=== PATIENT | female | born 1945 | race Hispanic/Latino ===

== ENCOUNTER → 2017-03-07 | Outpatient (CLI) | payer MEDICARE, OTHER ==
--- NOTE | 2017-03-07 11:46 | Diagnostic Imaging Report ---
PROCEDURE:X-RAY LEFT SHOULDER, COMPLETE COMPARISON:Chest radiograph 06/28/2016. INDICATIONS:LEFT SHOULDER PAIN FINDINGS: There are no fractures, dislocations, lytic or blastic lesions. Mild degenerative changes of the glenohumeral and acromioclavicular joints. The bones are well-mineralized. The soft-tissues are unremarkable. CONCLUSION: No acute osseous abnormalities. Dictated by: Jorge Mendoza M.D. on 03/07/2017 at 11:55 Electronically approved by: Jorge Mendoza M.D. on 03/07/2017 at 11:55
== END ==
LOC: RAD 11:20
PROVIDERS: ATTEND Family Medicine
DX: M25.512 Pain in left shoulder (principal)

== ENCOUNTER → 2017-03-22 | Outpatient (CLI) | payer OTHER ==
--- NOTE | 2017-03-22 12:25 | Diagnostic Imaging Report ---
SKULL series: Frontal and lateral projections COMPARISON: None HISTORY: MRI clearance FINDINGS: No fracture is seen. The paranasal sinuses are clear. Patient is status post right pterional craniotomy with aneurysm clip in the region of the right parasellar region. IMPRESSION: Prior right pterional craniotomy with aneurysm clip in the region of the right parasellar region. Signed by: Dr. Lia Chavez M.D. on 03/22/2017 12:22 PM
--- NOTE | 2017-03-22 14:47 | Diagnostic Imaging Report ---
TECHNIQUE: Magnetic resonance imaging of the LEFT SHOULDER was performed WITHOUT injected contrast. HISTORY: Injury COMPARISON: None available. FINDINGS: MUSCLES AND TENDONS: Rotator Cuff: Tendons: Supraspinatus and Infraspinatus: Intrasubstance degeneration, bursal and articular sided fraying without a discrete well-defined tear or tendon retraction. Teres Minor: Intact Subscapularis: Intact Muscles: No focal muscle atrophy. Biceps Tendon: The long head of the biceps tendon is intact and within the intertubercular groove. GLENOHUMERAL JOINT: Glenoid Labrum: Complex tearing of the superior, posterior superior and posterior labrum, with involvement of the biceps labral anchor. Articular Cartilage: Intermediate to high-grade erosion. Joint Fluid: Trace effusion. ACROMIOCLAVICULAR JOINT: Mild hypertrophic degenerative changes of the acromioclavicular joint with a trace effusion. BONE: The acromion is unremarkable. No focal or infiltrative bone marrow replacing abnormality. No acute fracture. SOFT TISSUES: Mild thickening and edema of the anterior aspect of the inferior glenohumeral ligament. IMPRESSION: 1. Sprain of the anterior aspect of the inferior glenohumeral ligament. 2. Mild to moderate degenerative changes of the glenohumeral joint, including degenerative tearing of the labrum as detailed above. 3. Mild supraspinatus and infraspinatus tendinosis. 4. Mild degenerative changes of the acromioclavicular joint. Signed by: Dr. Tato Scott D.O., M.M.M. on 03/22/2017 2:43 PM
== END ==
LOC: MRI 10:17
PROVIDERS: ATTEND Specialist
DX: S46.092A Other injury of muscle(s) and tendon(s) of the rotator cuff of left shoulder, initial encounter (principal)
CPT/HCPCS: 70250

== ENCOUNTER 2017-05-03 14:49 | Outpatient (RCR) | payer MEDICARE, OTHER ==
[2017-09-17] MEDS ORDERED: ALENDRONATE SOD70 MG PO (14:23)
[2017-09-17] MEDS ORDERED: METOPROLOL SUCC25 MG PO (14:24)
[2017-09-17] MEDS ORDERED: ULTRAM 50MG50 MG PO (14:24)
[2017-09-17] MEDS ORDERED: DIOVAN HCT 3201 EAC1 PO (14:25)
[2017-09-17] MEDS ORDERED: GLIPIZIDE ER5 MG PO (14:25)
[2017-09-19] MEDS ORDERED: NAPROXEN250 MG PO (10:46)
== END 2017-05-05 ==
LOC: PT 14:49
PROVIDERS: ATTEND Specialist
DX: S43.402S Unspecified sprain of left shoulder joint, sequela (principal); M25.512 Pain in left shoulder; M25.612 Stiffness of left shoulder, not elsewhere classified; M62.81 Muscle weakness (generalized)
CPT/HCPCS: 97010 ×2; 97110 ×9; 97140; 97162; G8984; G8985

== ENCOUNTER 2017-06-01 10:50 | Outpatient (RCR) | payer OTHER, MEDICARE | END 2017-06-04 | LOC: PT 10:50 | PROVIDERS: ATTEND Specialist | DX: S43.402S Unspecified sprain of left shoulder joint, sequela (principal); M75.92 Shoulder lesion, unspecified, left shoulder; M25.512 Pain in left shoulder; M25.612 Stiffness of left shoulder, not elsewhere classified | CPT/HCPCS: 97139 ==

== ENCOUNTER 2017-09-11 10:03 | Emergency (ER) | payer MEDICARE, OTHER ==
[~2017-09-11] VITALS: Ht 142.2 cm; Wt 49.9 kg
[2017-09-11] MEDS ORDERED: KETOROLAC TROMETHAMINE 10 MG TAB PO ONE (10:15)
[2017-09-11] MEDS ORDERED: TRAMADOL HCL 50 MG TAB PO ONE (10:15)
--- NOTE | 2017-09-11 11:54 | Diagnostic Imaging Report ---
PROCEDURE:FEMUR 2 VIEWS MINIMUM LEFT COMPARISON:[facility], CT, CT ABDOMEN/PELVIS W, 06/28/2016, 17:02. INDICATIONS:FALL FINDINGS: Decreased mineralization, which limits evaluation of the bony structures. Partially visualized acute, displaced fracture of the patella with associated soft tissue swelling above the distal femur. No other acute, displaced fractures or dislocations. Mild degenerative changes in the left hip and sacroiliac joints. Soft tissues are otherwise unremarkable. CONCLUSION: Decreased mineralization, which limits evaluation of bony structures. No acute, displaced fracture or dislocation in the femur. Partially visualized acute, displaced fracture of the patella Abimael Cevallos M.D. Dictated by: Abimael Cevallos M.D. on 09/11/2017 at 11:59 Electronically approved by: Abimael Cevallos M.D. on 09/11/2017 at 11:59
--- NOTE | 2017-09-11 11:56 | Diagnostic Imaging Report ---
PROCEDURE:X-RAY LEFT KNEE, THREE OR MORE VIEWS COMPARISON:None. INDICATIONS:LEFT KNEE PAIN FROM FALL FINDINGS: Decreased mineralization, which limits evaluation of the bony structures. Acute, mildly comminuted, fracture of the patella, with approximately 1.4 cm superior distraction of the proximal fragment. Marked soft tissue swelling anterior to the patella. Moderate to large suprapatellar effusion. Rest of the bony structures shows no acute, displaced fracture or dislocation. Joint spaces are relatively well-preserved. CONCLUSION: Acute, mildly comminuted fracture of the patella with approximately 1.4 cm superior distraction of the proximal fragment. Associated marked soft tissue swelling anterior to the patella and a moderate to large suprapatellar effusion. Abimael Cevallos M.D. Dictated by: Abimael Cevallos M.D. on 09/11/2017 at 12:02 Electronically approved by: Abimael Cevallos M.D. on 09/11/2017 at 12:02
--- NOTE | 2017-09-11 11:58 | Diagnostic Imaging Report ---
PROCEDURE:X-RAY LEFT LOWER LEG COMPARISON:None. INDICATIONS:FALL FINDINGS: Decreased mineralization, which limits evaluation of the bony structures. No acute, displaced fracture or dislocations in the lower leg. Soft tissues are unremarkable. Joint spaces are preserved. CONCLUSION: No acute abnormalities in the lower leg. Please see dedicated knee film report for description of acute, displaced left patellar fracture and associated findings Abimael Cevallos M.D. Dictated by: Abimael Cevallos M.D. on 09/11/2017 at 12:04 Electronically approved by: Abimael Cevallos M.D. on 09/11/2017 at 12:04
== END 2017-09-11 13:18 | disposition home or self-care (01) ==
LOC: ER 10:10
DX: S82.042A Displaced comminuted fracture of left patella, initial encounter for closed fracture (principal); W01.0XXA Fall on same level from slipping, tripping and stumbling without subsequent striking against object, initial encounter; Y93.01 Activity, walking, marching and hiking; Y92.008 Other place in unspecified non-institutional (private) residence as the place of occurrence of the external cause
CPT/HCPCS: 99284

== ENCOUNTER → 2017-09-19 | Day surgery (SDC) | payer MEDICARE, OTHER ==
[2017-09-17 14:43] LABS: BASOPHILS # (AUTO) 0.1 (0.0-0.1); BASOPHILS % 0.6 % (0.0-1.0); EOSINOPHILS # (AUTO) 0.3 (0.0-0.4); EOSINOPHILS % 2.9 % (0.0-6.0); HEMATOCRIT 33.5 % (34.2-44.1); HEMOGLOBIN 11.4 g/dL (12.0-16.0); LYMPHOCYTES # (AUTO) 2.9 (1.0-3.2); LYMPHOCYTES % 32.3 % (18.0-39.1); MEAN CORPUSCULAR HEMOGLOBIN 31.2 pg (28-32); MEAN CORPUSCULAR VOLUME 91.8 fL (81-99); MONOCYTES # (AUTO) 0.5 (0.2-0.8); MONOCYTES % 6.1 % (4.4-11.3); NEUTROPHILS # (AUTO) 5.1 (2.1-6.9); NEUTROPHILS % 57.9 % (38.7-80.0); PLATELET COUNT 148 x10e3/uL (140-360); RED BLOOD COUNT 3.65 x10e6/uL (3.6-5.1); RED CELL DISTRIBUTION WIDTH 13.1 % (11.7-14.4)
[2017-09-17 14:56] LABS: ANION GAP 12.7 mmol/L (8-16); BLOOD UREA NITROGEN 13 mg/dL (7-26); BUN/CREATININE RATIO 20 (6-25); CARBON DIOXIDE 26 mmol/L (22-29); CHLORIDE 107 mmol/L (98-107); CREATININE, SERUM 0.64 mg/dL (0.57-1.11); EST GLOMERULAR FILTRATION RATE > 60 ML/MIN (60-); GLUCOSE 174 mg/dL (74-118); POTASSIUM 3.7 mmol/L (3.5-5.1); SODIUM 142 mmol/L (136-145)
--- NOTE | 2017-09-17 15:26 | Diagnostic Imaging Report ---
PROCEDURE: Frontal and lateral views of the chest. COMPARISON: 06/28/16 INDICATIONS: PRE-OP FOR LT PATELLA FRACTURE FINDINGS: Lines/tubes: None. Lungs: The lungs are well inflated and clear. There is no evidence of pneumonia or pulmonary edema. Pleura: There is no pleural effusion or pneumothorax. Heart and mediastinum: The heart and the mediastinum are normal. Bones: No acute bony abnormality. Degenerative changes of thoracic spine. IMPRESSION: 1. No acute cardiopulmonary disease. Dictated by: Jordan Larson M.D. on 09/17/2017 at 15:32 Electronically approved by: Jordan Larson M.D. on 09/17/2017 at 15:32
[~2017-09-19] MED LIST: ACETAMINOPHEN 1000 MG/100 ML 100 ML IV ONE; ACETAMINOPHEN 1000 MG/100 ML IV ONE; ALENDRONATE SOD70 MG PO; BACITRACIN 50,000 UNIT VIAL ONE; BUPIVACAINE HCL 0.5% INJ 30 ML VIAL INJ ONE; CEFAZOLIN SOD 1 GM VIAL ONE; DIOVAN HCT 3201 EAC1 PO; FENTANYL CITRATE/PF 100MCG/2 ML INJ ONE; GLIPIZIDE ER5 MG PO; HYDROMORPHONE 1MG/1ML INJ ONE; LIDOCAINE HCL 2% LOCAL INJ 5 ML SDV VIAL INJ ONE; METOPROLOL SUCC25 MG PO; MIDAZOLAM HCL 2 MG/2 ML VIAL ONE; NAPROXEN250 MG PO; ONDANSETRON HCL INJ 2 MG/ML VIAL ONE; PROPOFOL IV EMULSION 10 MG/ML 20 ML VIAL ONE; SEVOFLURANE INHAL SOLN 250 ML PEN BTL ONE; ULTRAM 50MG50 MG PO
--- NOTE | 2017-09-22 13:55 | Operative Report ---
DATE OF PROCEDURE: September 19, 2017 PREOPERATIVE DIAGNOSIS: Left displaced patella fracture. POSTOPERATIVE DIAGNOSIS: Left displaced patella fracture. OPERATION/PROCEDURE PERFORMED: The patient underwent an open reduction internal fixation of the left patella fracture with a tension band technique. 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 ANESTHESIA: General endotracheal intubation anesthesia. IV FLUIDS: Per the anesthesia record. BRIEF DESCRIPTION OF THE PATIENT'S OPERATIVE PROCEDURE: Ms. Marquez was taken to the operating room and placed in the supine position on the operating table. Following induction of general anesthesia, as well as endotracheal intubation, the patient's left lower extremity was examined under anesthesia. She was found to have bruising and ecchymosis involving the left knee joint. Fluoroscopic evaluation of the knee demonstrated a displaced patellar fracture. The patient's lower extremity was prepped and draped in the standard surgical fashion. The case was begun by creating an incision overlying the patella. The incision was carried through skin only. Blunt dissection was used to deepen the incision to the level of the extensor mechanism. The extensor mechanism was found to be disrupted at the midportion of the patella. There was a displaced patellar fracture. The fracture sites were cleaned and the knee was thoroughly irrigated. The fracture was then reduced and held in place with a tenaculum clamp. Two 0.062 K-wires were inserted from distal to proximal transfixing the fracture in its reduced position. The position of the K-wires was checked using fluoroscopy and found to be appropriate. An 18-gauge wire was then woven about the patella beneath the pins in a figure-of-8 fashion and tensioned appropriately. Fluoroscopic evaluation of the knee joint demonstrated a reduction of the patient's articular surface with minimal step-off and appropriate placement of the hardware. The knee was now placed through a range of motion, and the patella remained aligned with good compression. The 0.062 K-wires were cut and buried within the soft tissues. The wound was copiously irrigated. The extensor retinaculum was repaired with nonabsorbable suture. The wound was closed in a multilayer fashion. Sterile dressings were applied, as well as a knee immobilizer. The patient was then awakened and taken to the postanesthesia care unit in stable condition. Job#: [id number] RI
--- OUTSIDE RECORDS SUMMARY | 2017-11-08 01:59 | XMS REPORT | Continuity of Care Document ---
Author Author [facility] Organization [facility] Address [address] [place] [address] Phone Unavailable Care Team Providers Care Distributor Cleaner Name Role Phone MARJORIE MCCRAY PCP Insurance Providers Guarantor Rere Marquez Steven Address [address] [place] [address] Payer [facility] Policy Number [id number] Subscriber's Name Rere Marquez Relationship 18 Self / Same As Patient Group Name RETIRED Payer [facility] Policy Number [id number] Subscriber's Name Rere Marquez Relationship 18 Self / Same As Patient Group Name RETIRED Advance Directives Directive Response Recorded Date/Time Does the patient have an advance directive? No 08/11/15 9:46am If yes, is advance directive on file with [facility]? No 08/11/15 9:46am If not on file with [facility] will patient provide a copy? No 08/11/15 9:46am Problems No problem information available. Medications No medication information available. Social History Smoking Status Start Date Stop Date Current every day smoker Hospital Discharge Instructions No hospital discharge instruction information available. Plan of Care Discharge Date 09/11/17 1:18pm Disposition HOME, SELF-CARE Condition at Discharge Stable Instructions/Education Provided Fractures - Knee Forms Provided Work/School Excuse Prescriptions See Medication Section Referrals SRINIVAS ASHER MD Order Date: Call for an appointment Address[facility] [address] [place], [place] [id number] Additional Instructions/Education FOLLOW UP WITH ORTHOPEDIC DOCTOR Lidna ASHER ON WEDNESDAY 09/13. CALL FOR APPOINTMENT TAKE MEDICATION PRESCRIBED WEAR KNEE IMMOBILIZER, AND BEAR WEIGHT TOLERATED Functional Status No functional status information available. Allergies, Adverse Reactions, Alerts No known allergies. Immunizations No immunization information available. Vital Signs Acute Vital Signs Vital Response Date/Time Height 4 ft 8 in 09/11/2017 10:04am Weight 110 lb 09/11/2017 10:04am Body Mass Index 24.7 kg/m^2 09/11/2017 10:04am Results No relevant diagnostic test, laboratory data and/or discharge summary information available. Procedures Procedure Status Date Provider(s) MRI joint upr extrem w/o dye Active 03/22/17 SRINIVAS ASHER MD Encounters Encounter Location Arrival/Admit Date Discharge/Depart Date Attending Provider [facility] 09/11/17 10:10am 09/11 1:18pm JORDIN NUÑEZ MD Discharged [facility] 05/07/17 9:48am 06/04/17 11:59pm SRINIVAS ASHER MD Discharged [facility] 04/10/17 1:07pm 05/05/17 11:59pm SRINIVAS ASHER MD Registered Clinic [facility] 03/22/17 10:17am SRINIVAS ASHER MD Registered Clinic [facility] 03/07/17 11:20am MARJORIE MCCRAY
--- OUTSIDE RECORDS SUMMARY | 2017-11-08 01:59 | XMS REPORT ---
Author Author [facility] Address Unknown Phone Unavailable Care Team Providers Care Jewel Sawyer Name Role Phone SRINIVAS ASHER Unavailable Unavailable JORDIN NUÑEZ Unavailable Unavailable MARJORIE MCCRAY Unavailable Unavailable Problems This patient has no known problems. Allergies, Adverse Reactions, Alerts This patient has no known allergies or adverse reactions. Medications This patient has no known medications. Results Test Description Test Time Test Comments Text Results Atomic Results Result Comments CHEST 2 VIEWS 2017-09-17 15:32:00 [place] [address] Patient Name: PRESLEY HANNON MR #: [id number] : 1945 Age/Sex: 72/F Req #: [id number] Adm Physician: Ordered by: JAY JAY SOLO MD Report #: [id number] Location: OR Room/Bed: Procedure: [id number] DX/CHEST 2 VIEWS Exam Date: 09/17/17 Exam Time: 1500 REPORT STATUS: Signed PROCEDURE: Frontal and lateral views of the chest. COMPARISON: 06/28/16 INDICATIONS: PRE- OP FOR LT PATELLA FRACTURE FINDINGS: Lines/tubes: None. Lungs : The lungs are well inflated and clear. There is no evidence of pneumonia or pulmonary edema. Pleura: There is no pleural effusion or pneumothorax. Heart and mediastinum: The heart and the mediastinum are normal. Bones: No acute bony abnormality. Degenerative changes of thoracic spine. IMPRESSION: 1. No acute cardiopulmonary disease. Dictated by: Jordan Jensen M.D. on 09/17/2017 at 15:32 Electronically approved by: Jordan Jensen M.D. on 09/17/2017 at 15:32 Dictated By: JORDAN JENSEN MD 153 Transcribed By: NOBLE on 09/17/17 1532 COPY TO: JAY JAY SOLO MD LOWER LEG LEFT 2017-09-11 12:04:00 [place] [address] Patient Name: PRESLEY HANNON MR #: [id number] : 1945 Age/Sex: 72/F Req #: [id number] Adm Physician: Ordered by: JORDIN NUÑEZ MD Report #: [id number] Location: ER Room/Bed: Procedure: [id number] DX/LOWER LEG LEFT Exam Date: 09/11/17 Exam Time: 1110 REPORT STATUS: Signed PROCEDURE: X-RAY LEFT LOWER LEG COMPARISON: None. INDICATIONS: FALL FINDINGS: Decreased mineralization, which limits evaluation of the bony structures. No acute, displaced fracture or dislocations in the lower leg. Soft tissues are unremarkable. Joint spaces are preserved. CONCLUSION : No acute abnormalities in the lower leg. Please see dedicated knee film report for description of acute, displaced left patellar fracture and associated findings Abimael Cevallos M.D. Dictated by: Abimael Cevallos M.D. on 09/11/2017 at 12:04 Electronically approved by: Abimael Cevallos M.D. on 09/11/2017 at 12:04 Dictated By: ABIMAEL CEVALLOS MD 1204 Transcribed By: NOBLE on 09/11/17 1204 COPY TO: JORDIN NUÑEZ MD KNEE LEFT THREE VIEWS 2017-09-11 12:02:00 [place] [address] Patient Name: PRESLEY HANNON MR #: [id number] : 1945 Age/Sex: 72/F Req #: [id number] Adm Physician: Ordered by: JORDIN NUÑEZ MD Report #: [id number] Location: ER Room/Bed: __ Procedure: [id number] DX/KNEE LEFT THREE VIEWS Exam Date: 09/11/17 Exam Time: 1110 REPORT STATUS: Signed PROCEDURE: X-RAY LEFT KNEE, THREE OR MORE VIEWS COMPARISON: None. INDICATIONS: LEFT KNEE PAIN FROM FALL FINDINGS: Decreased mineralization, which limits evaluation of the bony structures. Acute, mildly comminuted, fracture of the patella, with approximately 1.4 cm superior distraction of the proximal fragment. Marked soft tissue swelling anterior to the patella. Moderate to large suprapatellar effusion. Rest of the bony structures shows no acute, displaced fracture or dislocation. Joint spaces are relatively well-preserved. CONCLUSION: Acute, mildly comminuted fracture of the patella with approximately 1.4 cm superior distraction of the proximal fragment. Associated marked soft tissue swelling anterior to the patella and a moderate to large suprapatellar effusion. Abimael Cevlalos M.D. Dictated by: Abimael Cevallos M.D. on 2017 at 12:02 Electronically approved by: Abimael Cevallos M.D. on 08/2017 at 12:02 Dictated By: ABIMAEL CEVALLOS MD 01 Transcribed By: NOBLE on 09/11/171201 COPY TO: JORDIN NUÑEZ MD FEMUR 2 VIEWS MINIMUM LEFT 2017-09-11 11:59:00 [place] [address] Patient Name: PRESLEY HANNON MR #: [id number] : 1945 Age/Sex: 72/F Req #: [id number] Adm Physician: Ordered by: JORDIN NUÑEZ MD Report #: [id number] Location: ER Room/Bed: Procedure: [id number] DX/FEMUR 2 VIEWS MINIMUM LEFT Exam Date: Exam Time: REPORT STATUS: Signed PROCEDURE : FEMUR 2 VIEWS MINIMUM LEFT COMPARISON: [facility], CT, CT ABDOMEN/PELVIS W, 06/28/2016, 17:02. INDICATIONS: FALL FINDINGS: Decreased mineralization, which limits evaluation of the bony structures. Partially visualized acute, displaced fracture of the patella with associated soft tissue swelling above the distal femur. No other acute , displaced fractures or dislocations. Mild degenerative changes in the left hip and sacroiliac joints. Soft tissues are otherwise unremarkable. CONCLUSION: Decreased mineralization, which limits evaluation of bony structures. No acute, displaced fracture or dislocation in the femur. Partially visualized acute, displaced fracture of the patella Abimael Cevallos M.D. Dictated by: Abimael Cevallos M.D. on 09/11/2017 at 11:59 Electronically approved by: Abimael Cevallos M.D. on 09/11/2017 at 11 :59 Dictated By: ABIMAEL CEVALLOS MD 115 Transcribed By: NOBLE on 09/11/17 1159 COPY TO: JORDIN NUÑEZ MD MRI SHOULDER LEFT WO [facility] [address] [place] [address] Patient Name: PRESLEY HANNON MR #: [id number] : 1945 Age/Sex: 71/F Req #: [id number] Adm Physician: Ordered by: SRINIVAS ASHER MD Report #: [id number] Location: MRI Room/Bed: Procedure: [id number] MRI/MRI SHOULDER LEFT WO Exam Date: Exam Time : REPORT STATUS: Signed TECHNIQUE: Magnetic resonance imaging of the LEFT SHOULDER was performed WITHOUT injected contrast. HISTORY: Injury COMPARISON: None available. FINDINGS: MUSCLES AND TENDONS: Rotator Cuff: Tendons: Supraspinatus and Infraspinatus: Intrasubstance degeneration, bursal and articular sided fraying without a discrete well- defined tear or tendon retraction. Teres Minor: Intact Subscapularis: Intact Muscles: No focal muscle atrophy. Biceps Tendon: The long head of the biceps tendon is intact and within the intertubercular groove. GLENOHUMERAL JOINT: Glenoid Labrum: Complex tearing of the superior, posterior superior and posterior labrum, with involvement of the biceps labral anchor. Articular Cartilage: Intermediate to high-grade erosion. Joint Fluid: Trace effusion. ACROMIOCLAVICULAR JOINT: Mild hypertrophic degenerative changes of the acromioclavicular joint with a trace effusion. BONE: The acromion is unremarkable. No focal or infiltrative bone marrow replacing abnormality. No acute fracture. SOFT TISSUES: Mild thickening and edema of the anterior aspect of the inferior glenohumeral ligament. IMPRESSION: 1. Sprain of the anterior aspect of the inferior glenohumeral ligament. 2. Mild to moderate degenerative changes of the glenohumeral joint, including degenerative tearing of the labrum as detailed above. 3. Mild supraspinatus and infraspinatus tendinosis. 4. Mild degenerative changes of the acromioclavicular joint. Signed by: Dr. Tato Scott D.O., M.M.M. on 2017 2:43 PM Dictated By: TATO SCOTT DO 1443 Transcribed By: LI on 03/22/17 1443 COPY TO: SRINIVAS ASHER MD SKULL SERIES < FOUR VIEWS [place] [address] Patient Name: PRESLEY HANNON MR #: [id number] : 1945 Age/Sex: 71/F Req #: [id number] Adm Physician: Ordered by: MARTA IRENE, MONTY Macario MD Report #: [id number] Location: MRI Room/Bed: __ Procedure: [id number] DX/SKULL SERIES < FOUR VIEWS Exam Date: 03/22/17 Exam Time: 1130 REPORT STATUS: Signed SKULL series: Frontal and lateral projections COMPARISON: None HISTORY: MRI clearance FINDINGS: No fracture is seen. The paranasal sinuses are clear. Patient is status post right pterional craniotomy with aneurysm clip in the region of the right parasellar region. IMPRESSION: Prior right pterional craniotomy with aneurysm clip in the region of the right parasellar region. Signed by: Dr. Dax Chavez M.D. on 03/22/2017 12: 22 PM Dictated By: DAX COY MD 1222 Transcribed By: LI on 03/22 122 COPY TO: MONTY LOZANO SHOULDER LEFT COMPLETE [place] [address] Patient Name: PRESLEY HANNON MR #: [id number] : 1945 Age/Sex: 71/F Req #: [id number] Adm Physician: Ordered by: MARJORIE MCCRAY MD, MD Report #: [id number] Location: [facility] Room/Bed: ____ Procedure: [id number] DX/SHOULDER LEFT COMPLETE Exam Date: 03/07/17 Exam Time: 1115 REPORT STATUS: Signed PROCEDURE : X-RAY LEFT SHOULDER, COMPLETE COMPARISON: Chest radiograph 2016. INDICATIONS: LEFT SHOULDER PAIN FINDINGS: There are no fractures, dislocations, lytic or blastic lesions. Mild degenerative changes of the glenohumeral and acromioclavicular joints. The bones are well- mineralized. The soft-tissues are unremarkable. CONCLUSION: No acute osseous abnormalities. Dictated by: Jorge Calvo M.D. on at 11:55 Electronically approved by: Jorge Calvo M.D. on 03/07 at 11:55 Dictated By: JORGE CALVO MD 1155 Transcribed By: NOBLE on 03/07/17 1155 COPY TO: MARJORIE MCCRAY
== END | disposition home or self-care (01) ==
LOC: OR 10:25
PROVIDERS: ATTEND Specialist
DX: S82.042A Displaced comminuted fracture of left patella, initial encounter for closed fracture (principal); E11.9 Type 2 diabetes mellitus without complications; I10 Essential (primary) hypertension; K21.9 Gastro-esophageal reflux disease without esophagitis; R00.1 Bradycardia, unspecified; F17.210 Nicotine dependence, cigarettes, uncomplicated; W01.198A Fall on same level from slipping, tripping and stumbling with subsequent striking against other object, initial encounter; Y92.009 Unspecified place in unspecified non-institutional (private) residence as the place of occurrence of the external cause; Z01.810 Encounter for preprocedural cardiovascular examination; Z01.812 Encounter for preprocedural laboratory examination; Z01.818 Encounter for other preprocedural examination; Z79.84 Long term (current) use of oral hypoglycemic drugs
CPT/HCPCS: 27524; 36415 ×2; 71046; 76001; 80048; 82948; 85025; 93005; J0690; J1170; J2001; J2250; J2405

== ENCOUNTER → 2017-12-05 | Outpatient (RCR) | payer MEDICARE, OTHER ==
[~2017-12-05] MED LIST changes: -ACETAMINOPHEN 1000 MG/100 ML 100 ML IV ONE; -ACETAMINOPHEN 1000 MG/100 ML IV ONE; -BACITRACIN 50,000 UNIT VIAL ONE; -BUPIVACAINE HCL 0.5% INJ 30 ML VIAL INJ ONE; -CEFAZOLIN SOD 1 GM VIAL ONE; -FENTANYL CITRATE/PF 100MCG/2 ML INJ ONE; -HYDROMORPHONE 1MG/1ML INJ ONE; -LIDOCAINE HCL 2% LOCAL INJ 5 ML SDV VIAL INJ ONE; -MIDAZOLAM HCL 2 MG/2 ML VIAL ONE; -ONDANSETRON HCL INJ 2 MG/ML VIAL ONE; -PROPOFOL IV EMULSION 10 MG/ML 20 ML VIAL ONE; -SEVOFLURANE INHAL SOLN 250 ML PEN BTL ONE
== END ==
LOC: PT 11-22 10:58
PROVIDERS: ATTEND Specialist
DX: S82.002A Unspecified fracture of left patella, initial encounter for closed fracture (principal); M25.562 Pain in left knee; M25.662 Stiffness of left knee, not elsewhere classified; M62.81 Muscle weakness (generalized); R26.9 Unspecified abnormalities of gait and mobility
CPT/HCPCS: 97110 ×5; 97162; G8978; G8979

== ENCOUNTER → 2018-01-04 | Outpatient (RCR) | payer MEDICARE, OTHER | LOC: PT 12-06 10:59 | PROVIDERS: ATTEND Specialist | DX: S82.002D Unspecified fracture of left patella, subsequent encounter for closed fracture with routine healing (principal); M25.562 Pain in left knee; M25.662 Stiffness of left knee, not elsewhere classified; M62.81 Muscle weakness (generalized); R26.9 Unspecified abnormalities of gait and mobility | CPT/HCPCS: 97110 ×9; 97116; 97139; 97140; G8978; G8979 ==

== ENCOUNTER 2018-01-24 16:00 | Outpatient (RCR) | payer MEDICARE, OTHER | END 2018-02-04 | LOC: PT 16:00 | PROVIDERS: ATTEND Specialist | DX: S82.002A Unspecified fracture of left patella, initial encounter for closed fracture (principal); M25.562 Pain in left knee; M25.662 Stiffness of left knee, not elsewhere classified; M62.81 Muscle weakness (generalized); R26.9 Unspecified abnormalities of gait and mobility | CPT/HCPCS: 97110 ×6; G8978; G8979 ==

== ENCOUNTER → 2018-05-29 | Outpatient (CLI) | payer MEDICARE, OTHER ==
--- NOTE | 2018-05-29 12:12 | Diagnostic Imaging Report ---
EXAMINATION: CHEST 2 VIEWS INDICATION: Dyspnea. COMPARISON: None FINDINGS: TUBES and LINES: None. LUNGS: Lungs are well inflated. Lungs are clear. There is no evidence of pneumonia or pulmonary edema. PLEURA: No pleural effusion or pneumothorax. HEART AND MEDIASTINUM: The cardiomediastinal silhouette is unremarkable. BONES AND SOFT TISSUES: No acute osseous abnormality. UPPER ABDOMEN: No free air under the diaphragm. Status post cholecystectomy. IMPRESSION: Signed by: Dr. Gonzales Cantu MD on 05/29/2018 12:08 PM
== END ==
LOC: RAD 10:42
PROVIDERS: ATTEND Family Medicine
DX: R06.00 Dyspnea, unspecified (principal)
CPT/HCPCS: 71046

== ENCOUNTER 2019-03-10 20:48 | Emergency (ER) | payer MEDICARE, OTHER ==
[~2019-03-10] VITALS: Ht 142.2 cm; Wt 49.9 kg
[2019-03-10] MEDS ORDERED: DIATRIZOATE MEGL/DIATRIZOA SOD 30 ML BTL PO ONE (21:19)
[2019-03-10 21:31] LABS: BILIRUBIN,URINE NEGATIVE (NEGATIVE); CLARITY,URINE SL CLOUDY (CLEAR); COLOR,URINE YELLOW (YELLOW); KETONES,URINE NEGATIVE (NEGATIVE); LEUKOCYTE ESTERASE ,URINE TRACE (NEGATIVE); NITRITE,URINE POSITIVE (NEGATIVE); PROTEIN,URINE DIPSTICK NEGATIVE (NEGATIVE); URINE UROBILINOGEN 0.2 mg/dL (0.2 - 1)
[2019-03-10 21:33] LABS: HEMOGLOBIN 12.6 g/dL (12.0-16.0); RED BLOOD COUNT 4.04 x10e6/uL (3.6-5.1)
[2019-03-10 21:34] LABS: BASOPHILS % 0.1 % (0.0-1.0); EOSINOPHILS % 0.3 % (0.0-6.0); HEMATOCRIT 37.4 % (34.2-44.1); LYMPHOCYTES % 2.6 % (18.0-39.1); MEAN CORPUSCULAR HEMOGLOBIN 31.2 pg (28-32); MEAN CORPUSCULAR HGB CONC 33.7 g/dL (31-35); MEAN CORPUSCULAR VOLUME 92.6 fL (81-99); MONOCYTES % 0.7 % (4.4-11.3); NEUTROPHILS % 8.2 % (38.7-80.0); PLATELET COUNT 160 x10e3/uL (140-360); RED CELL DISTRIBUTION WIDTH 14.9 % (11.7-14.4)
[2019-03-10 21:35] LABS: BACTERIA,URINE MODERATE /HPF; EPITHELIAL CELLS,URINE MODERATE /LPF
[2019-03-10 22:00] LABS: ALANINE AMINOTRANSFERASE 19 IU/L (0-55); ALBUMIN 3.5 g/dL (3.5-5.0); ALBUMIN/GLOBULIN RATIO 1.1 (0.8-2.0); ALKALINE PHOSPHATASE 94 IU/L (40-150); ANION GAP 15.7 mmol/L (8-16); BLOOD UREA NITROGEN 13 mg/dL (7-26); BUN/CREATININE RATIO 20 (6-25); CALCIUM 9.3 mg/dL (8.4-10.2); CARBON DIOXIDE 25 mmol/L (22-29); CHLORIDE 101 mmol/L (98-107); CREATININE, SERUM 0.66 mg/dL (0.57-1.11); EST GLOMERULAR FILTRATION RATE > 60 ML/MIN (60-); GLUCOSE 82 mg/dL (74-118); POTASSIUM 3.7 mmol/L (3.5-5.1); SODIUM 138 mmol/L (136-145)
[2019-03-10 22:01] LABS: AMYLASE 112 U/L (25-125); LIPASE 155 U/L (8-78)
[2019-03-10] MEDS ORDERED: IOPAMIDOL 370 MG/ML 200 ML INFUS..BTL INJ ONE (22:43)
[2019-03-10] MEDS ORDERED: SODIUM CHLORIDE 0.9% 50ML 50 ML ONE (22:43)
--- NOTE | 2019-03-10 23:21 | Diagnostic Imaging Report ---
EXAM: CT Abdomen and Pelvis WITH contrast INDICATION: Right lower quadrant pain. COMPARISON: 11/25/2018. TECHNIQUE: Abdomen and pelvis were scanned utilizing a multidetector helical scanner from the lung base to the pubic symphysis after administration of IV contrast. Coronal and sagittal reformations were obtained. Routine protocol was performed. Scan was performed when during portal venous phase. IV CONTRAST: 150 mL of Omnipaque 300 ORAL CONTRAST: Gastrografin and water mixture. RADIATION DOSE: Total DLP: 178.12 mGy*cm Estimated effective dose: (DLP x 0.015 x size factor) mSv COMPLICATIONS: None FINDINGS: LINES and TUBES: None. LOWER THORAX: There is bibasilar atelectasis. HEPATOBILIARY: No focal hepatic lesions. No biliary ductal dilation. GALLBLADDER: There are cholecystectomy clips. SPLEEN: No splenomegaly. PANCREAS: No focal masses or ductal dilatation. ADRENALS: No adrenal nodules KIDNEYS/URETERS: Kidneys enhance symmetrically. No hydronephrosis. No cystic or solid mass lesions. No stones. GI TRACT: No abnormal distention, wall thickening, or evidence of bowel obstruction. There are diverticula within the colon without evidence of diverticulitis. Appendix is normal. PELVIC ORGANS/BLADDER: The uterus is absent. LYMPH NODES: No lymphadenopathy. 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 There is moderate atherosclerotic disease in the aorta and major arterial branches. PERITONEUM / RETROPERITONEUM: No free air or fluid. BONES: There are degenerative changes in the lumbar spine. SOFT TISSUES: Unremarkable. IMPRESSION: 1. No acute abdominal pelvic abnormality. Unremarkable appendix. 2. Diverticulosis without acute diverticulitis. 3. Status post post cystectomy. No significant biliary dilatation. 4. 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 Signed by: Dr. Johanna Boyd M.D. on 03/10/2019 11:19 PM
[2019-03-10 23:31] VITALS: BP 139/86
--- OUTSIDE RECORDS SUMMARY | 2019-03-11 19:30 | XMS REPORT | Summary of Care ---
Author Author KYLE OH M.D. Organization Unknown Address Unknown Phone Unavailable Care Team Providers Care Clinical Operations Specialist Name Role Phone KYLE OH M.D. Unavailable Unavailable SHAZIA IRENE, MARJORIE Macario Unavailable Unavailable Remington IRENE, Chris Unavailable Unavailable KYLE OH MD Unavailable Unavailable CARLYN IRENE [place], SHERRY ACE Unavailable Unavailable Functional Status Name Dates Details Functional status health issues are not documented Status: Name Dates Details Cognitive status health issues are not documented Status: Problems Name Dates Details Aftercare following surgery (V58.89, Z48.89) Status: Active Post-op pain (338.18, G89.18) Status: Active Medications Name Dates Details Medications not documented Allergies and Adverse Reactions Name Dates Details Codeine Phosphate SOLN (Allergy) Status: Active Past Medical History Name Dates Details History of blood clots (V12.51, Z86.718) Status: Resolved History of Diabetes mellitus due to underlying condition with diabetic peripheral angiopathy and gangrene, with long-term current use of insulin (249.70, E08.52) Status: Resolved History of heart valve abnormality (V12.59, Z86.79) Status: Resolved History of hypertension (V12.59, Z86.79) Status: Resolved History of myocardial infarction (412, I25.2) Status: Resolved Procedures Procedure Dates Details CVRAD - Left Lower Arterial Duplex [facility]/ [facility] - [id number] Date: 27-Feb-2018 History of Gallbladder surgery Completed History of Surgery For Aneurysm Completed History of Knee Surgery Completed Immunization Name Dates Details Immunizations not documented Family History Name Dates Details Family history of valvular heart disease (V17.49, Z82.49) Status: Active Family history of cardiac disorder (V17.49, Z82.49) Status: Active Name Dates Details Family history of malignant neoplasm of stomach (V16.0, Z80.0) Status: Active Family history of diabetes mellitus (V18.0, Z83.3) Status: Active Social History Name Dates Details - Status: Name Dates Details Current every day smoker Vital Signs Date Test Result Details No Known Vitals to report Results Date Description Value Details Results not documented Plan of Care Name Dates Details Planned Observations Planned Goals not documented Planned Encounters Appointment; CHRIS JAMES M.D. On: 30-Apr-2018 14:00 Instructions Name Dates Details Instructions not documented Encounters Appointment; VASCULAR, [facility] Encounter Diagnosis: Problem not documented On: 07-Feb-2018 8:00 Appointment; SHERRY ALCOCER M.D. Encounter Diagnosis: Problem not documented On: 07-Feb-2018 13:00 Appointment; CHRIS JAMES M.D. Encounter Diagnosis: Problem not documented On: 19-Feb-2018 14:30 Appointment; KYLE OH M.D. Encounter Diagnosis: Problem not documented On: 04-Mar-2018 11:00
== END 2019-03-10 23:30 | disposition home or self-care (01) ==
LOC: ER 20:48
DX: R10.31 Right lower quadrant pain (principal); N39.0 Urinary tract infection, site not specified; I10 Essential (primary) hypertension; E11.9 Type 2 diabetes mellitus without complications; I25.2 Old myocardial infarction; Z95.5 Presence of coronary angioplasty implant and graft; F17.210 Nicotine dependence, cigarettes, uncomplicated
CPT/HCPCS: 36415; 74177; 80053; 81001; 82150; 83690; 85025; 99284; Q9967

== ENCOUNTER → 2019-04-01 | Outpatient (CLI) | payer OTHER ==
--- NOTE | 2019-04-01 13:42 | Diagnostic Imaging Report ---
Exam: Chest radiograph Clinical History: Bronchitis Comparison: May 29, 2018 Findings: The cardiomediastinal silhouette and lungs are normal. The regional skeleton and soft tissue are unremarkable. There is no evidence of pleural effusion or pneumothorax. Impression: No radiographic evidence of acute cardiopulmonary disease. Signed by: Dr. Larry Oden MD on 04/01/2019 1:39 PM
== END ==
LOC: RAD 12:51
PROVIDERS: ATTEND Internal Medicine
DX: R07.89 Other chest pain (principal); J40 Bronchitis, not specified as acute or chronic
CPT/HCPCS: 71046

== ENCOUNTER 2019-04-06 15:45 | Observation (INO) | payer MEDICARE, OTHER ==
[~2019-04-06] VITALS: Ht 142.2 cm; Wt 49.4 kg
[2019-04-06] MEDS ORDERED: ALBUTEROL SULF 0.083% NEB SOLN 3 ML NEB NEB STA (15:51)
--- NOTE | 2019-04-06 16:14 | NUR ---
straight cath inserted per md orders via aseptic technique; urine output approx 50 cc; ua collected and sent to lab
[2019-04-06 16:24] LABS: BASOPHILS % 0.2 % (0.0-1.0); EOSINOPHILS % 0.1 % (0.0-6.0); HEMATOCRIT 38.2 % (34.2-44.1); HEMOGLOBIN 13.2 g/dL (12.0-16.0); LYMPHOCYTES # (AUTO) 2.4 (1.0-3.2); LYMPHOCYTES % 21.2 % (18.0-39.1); MEAN CORPUSCULAR HGB CONC 34.6 g/dL (31-35); MEAN CORPUSCULAR VOLUME 89.7 fL (81-99); MONOCYTES # (AUTO) 0.9 (0.2-0.8); MONOCYTES % 7.5 % (4.4-11.3); NEUTROPHILS # (AUTO) 8.1 (2.1-6.9); NEUTROPHILS % 70.7 % (38.7-80.0); PLATELET COUNT 100 x10e3/uL (140-360); RED BLOOD COUNT 4.26 x10e6/uL (3.6-5.1); RED CELL DISTRIBUTION WIDTH 15.8 % (11.7-14.4)
--- NOTE | 2019-04-06 16:32 | NUR ---
Patient presents to [facility], 12 lead ekg performed, cm applied, piv inserted, blood specimens obtained and sent to lab. pt sats 100% on RA, bbs cta. Dr. Fabian notified, ABG and neb trmts held due resp status.
[2019-04-06 16:43] LABS: ALBUMIN 2.6 g/dL (3.5-5.0); ANION GAP 13.3 mmol/L (8-16); CALCIUM 7.8 mg/dL (8.4-10.2); CREATININE, SERUM 1.64 mg/dL (0.57-1.11); POTASSIUM 3.3 mmol/L (3.5-5.1)
[2019-04-06 16:49] LABS: CREATINE KINASE MB 9.4 ng/mL (0-5.0)
--- NOTE | 2019-04-06 16:55 | Diagnostic Imaging Report ---
Examination: Single AP view of the chest. COMPARISON: None. INDICATION: Shortness of breath DISCUSSION: Lines/tubes: None. Lungs: The lungs are well inflated and clear. No pneumonia or pulmonary edema. Pleura: No pleural effusion or pneumothorax. Heart and mediastinum: The heart and the mediastinum are unremarkable. Bones and soft tissues: No acute bony abnormalities. IMPRESSION: 1. No acute cardiopulmonary abnormalities. Signed by: Dr. Yomi Wing M.D. on 04/06/2019 4:52 PM
--- NOTE | 2019-04-06 17:17 | NUR ---
Patient reports she has not been compliant with medications, BG elevated. Mucous membranes dry. Patient appears ashen, skin dry. Poor turgor.
[2019-04-06] MEDS ORDERED: DEXTROSE 50% SYRINGE 50 ML IV PRN (17:30)
[2019-04-06] MEDS ORDERED: CALCIUM GLUCONATE 10% INJ 4.65 MEQ in SODIUM CHLORIDE 0.9% 50ML 50 ML IV ONE (17:30)
[2019-04-06] MEDS ORDERED: SODIUM CHLORIDE 0.9% 1000ML 1,000 ML IV STA (17:33)
[2019-04-06] MEDS: SODIUM CHLORIDE 0.9% 1000ML 1,000 ML IV SCH ×2 (17:41→17:47)
[2019-04-06] MEDS: CEFTRIAXONE SOD 1 GM/NS 50 ML 50 ML IV SCH (17:41)
--- NOTE | 2019-04-06 17:50 | NUR ---
Kinza hinojosa in [place] - 04/06/19 at 1751 by KIANA report given to mo sapp at [facility]
--- NOTE | 2019-04-06 17:50 | NUR ---
Kinza hinojosa in [place] - 04/06/19 at 1751 by KIANA report given to may,
[2019-04-06 20:00] VITALS: BP 119/48
[2019-04-06] MEDS: INSULIN LISPRO 100 UNIT/1 ML 3ML VIAL SQ SCH (21:00)
[2019-04-06 21:57] VITALS: BP 119/48
[2019-04-06 22:16] VITALS: BP 118/48
[2019-04-07] VITALS (13 sets, daily range): BP systolic 85–114; BP diastolic 40–51
[2019-04-07 01:42] LABS: CREATINE KINASE MB 5.2 ng/mL (0-5.0)
--- NOTE | 2019-04-07 02:00 | NUR ---
Patient with low blood pressure, systolics in the 80s and MAPs below 60, despite being on NS on 100mls per hour. Dr Langford informed, to look at the labs and get back to me. Patient on close monitoring.
[2019-04-07] MEDS: SODIUM CHLORIDE 0.9% 1000ML 1,000 ML IV SCH (03:30)
[2019-04-07 05:26] LABS: BASOPHILS % 0.2 % (0.0-1.0); EOSINOPHILS # (AUTO) 0.1 (0.0-0.4); EOSINOPHILS % 0.7 % (0.0-6.0); HEMATOCRIT 30.5 % (34.2-44.1); HEMOGLOBIN 10.2 g/dL (12.0-16.0); LYMPHOCYTES # (AUTO) 2.5 (1.0-3.2); LYMPHOCYTES % 29.6 % (18.0-39.1); MEAN CORPUSCULAR HEMOGLOBIN 30.8 pg (28-32); MEAN CORPUSCULAR HGB CONC 33.4 g/dL (31-35); MEAN CORPUSCULAR VOLUME 92.1 fL (81-99); MONOCYTES # (AUTO) 0.9 (0.2-0.8); MONOCYTES % 10.2 % (4.4-11.3); NEUTROPHILS # (AUTO) 4.9 (2.1-6.9); NEUTROPHILS % 59.1 % (38.7-80.0); PLATELET COUNT 79 x10e3/uL (140-360); RED BLOOD COUNT 3.31 x10e6/uL (3.6-5.1); RED CELL DISTRIBUTION WIDTH 15.8 % (11.7-14.4)
[2019-04-07 06:22] LABS: ALANINE AMINOTRANSFERASE 24 IU/L (0-55); ALKALINE PHOSPHATASE 43 IU/L (40-150); BLOOD UREA NITROGEN 32 mg/dL (7-26); BUN/CREATININE RATIO 42 (6-25); CARBON DIOXIDE 22 mmol/L (22-29); CHLORIDE 104 mmol/L (98-107); CREATININE, SERUM 0.76 mg/dL (0.57-1.11); EST GLOMERULAR FILTRATION RATE > 60 ML/MIN (60-); GLUCOSE 143 mg/dL (74-118); SODIUM 131 mmol/L (136-145)
[2019-04-07 06:27] LABS: CALCIUM 6.8 mg/dL (8.4-10.2)
--- NOTE | 2019-04-07 06:45 | NUR ---
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 Patient alert and in good spirits in the bed. In no apparent distress. Able to make needs known
[2019-04-07] MEDS: CEFTRIAXONE SOD 1 GM/NS 50 ML 50 ML IV SCH ×2 (06:47→16:49)
[2019-04-07] MEDS: INSULIN LISPRO 100 UNIT/1 ML 3ML VIAL SQ SCH ×4 (08:07→21:16)
[2019-04-07] MEDS ORDERED: POTASSIUM CHLORIDE 20 MEQ TAB CR PO ONE (09:10)
[2019-04-07 09:21] LABS: CREATINE KINASE MB 3.7 ng/mL (0-5.0)
[2019-04-07] MEDS ORDERED: DOCUSATE SODIUM 100 MG CAP PO PRN (09:30)
[2019-04-07] MEDS ORDERED: ACETAMINOPHEN 325 MG TAB PO PRN (09:30)
[2019-04-07] MEDS ORDERED: ZOLPIDEM TARTRATE 5 MG TAB PO PRN ×2 (09:30→21:00)
[2019-04-07 10:00] LABS: CHOL/HDL RATIO 6.7 (3.0-3.6)
[2019-04-07 10:13] LABS: BILIRUBIN,URINE NEGATIVE (NEGATIVE); CLARITY,URINE CLEAR (CLEAR); COLOR,URINE YELLOW (YELLOW); KETONES,URINE NEGATIVE (NEGATIVE); LEUKOCYTE ESTERASE ,URINE NEGATIVE (NEGATIVE); NITRITE,URINE NEGATIVE (NEGATIVE); PROTEIN,URINE DIPSTICK NEGATIVE (NEGATIVE); URINE UROBILINOGEN 0.2 mg/dL (0.2 - 1)
[2019-04-07 10:22] LABS: BACTERIA,URINE FEW /HPF; EPITHELIAL CELLS,URINE MANY /LPF; RBC,URINE 0-5 /HPF (0-5)
--- NOTE | 2019-04-07 14:14 | Consultation ---
DATE OF CONSULTATION: Pulmonary Critical Care Consultation REFERRING PHYSICIAN: Dr. Gregg Fabian from the emergency department. CHIEF COMPLAINT: Dyspnea. HISTORY OF PRESENT ILLNESS: The patient is a 73-year-old woman. She has a history of diabetes and hypertension. She takes glipizide as an outpatient. She has a history of smoking, but denies any prior history of asthma or chronic bronchitis. She does not use inhalers at home. She does not use oxygen at home. Over the past week, she has noticed more fatigue. She complains of being weak and having body aches. She also complains of shortness of breath. She has a dry cough. She does not report any fevers or chest pain. She came to the emergency department and was found to have elevated blood sugar of 270-360 with a low sodium of 123 and an elevated creatinine of 1.64. She received intravenous fluids and insulin and reports some improvement. PAST SURGICAL HISTORY: 1. Status post left knee surgery. 2. Status post cardiac stent. PAST MEDICAL HISTORY: 1. Diabetes treated with glipizide. 2. Hypertension. 3. Prior myocardial infarction. SOCIAL HISTORY: The patient is a smoker. She is not actively drinking. FAMILY HISTORY: There is a history of diabetes and hypertension in the family. REVIEW OF SYSTEMS: CONSTITUTIONAL: The patient is afebrile. HEENT: Shows no facial swelling or erythema. She does not have headache. She denies sore throat. CARDIAC: She complains of some myalgias. CHEST: She has no chest pain. She has dry cough, but no wheezing. ABDOMEN: She does not complain of any abdominal pain. She has no nausea or vomiting. EXTREMITIES: She has no leg edema. She does have some chronic pain in her left knee. PHYSICAL EXAMINATION: VITAL SIGNS: The patient is afebrile. The blood pressure is 100/46, and saturation is 98% on room air. HEENT: Shows no facial swelling or erythema. CARDIAC: Reveals regular rate and rhythm with normal S1 and S2. LUNGS: Auscultation of lungs is clear breath sounds bilaterally. There is no wheezing. ABDOMEN: Soft, nontender. There is no rebound or guarding. EXTREMITIES: Show no leg edema or calf tenderness. There is no cyanosis or clubbing. SKIN: Shows no rashes. NEUROLOGICAL: Shows no focal abnormalities. RADIOGRAPHIC DATA: Chest x-ray shows no acute disease. LABORATORY DATA: This morning, the sodium is 131 and the potassium is 3.0. The BUN to creatinine ratio is 32 to 0.74. Glucose is 147. Albumin is 2. White blood cell count is 8.3 and hemoglobin is 10.2. The platelet count is 79. IMPRESSION: 1. Acute kidney injury. 2. Diabetes out of control with hyperglycemia. 3. Hyponatremia. 4. Dyspnea probably secondary to metabolic problems. 5. Moderate protein-calorie malnutrition. 6. Hypokalemia. PLAN: 1. Continue hydration with normal saline. 2. Monitor and control blood sugars. 3. Hold antihypertensive medications for now because of low blood pressure for dietary evaluation. 4. Await echocardiogram. Juni Sanchez MD [facility] /[id number]
--- NOTE | 2019-04-07 15:02 | Diagnostic Imaging Report ---
HISTORY : Cirrhosis COMPARISON : CT of the abdomen and pelvis dated 03/10/2019 COMMENT : Complete ultrasound examination of the abdomen was performed. The liver is normal in size and homogeneous in echo-texture without evidence of a focal mass. The gallbladder is surgically absent. The biliary tract is within normal limits with the common bile duct measuring 3 mm in maximum diameter. The visualized portions of the pancreas are within normal limits. The spleen is normal in size and echo-texture measuring 10.9 cm. The right kidney measures 8.9 cm and the left kidney 9.9 cm in maximum size. There is no evidence of cysts, masses, stones or hydronephrosis. The portal vein measures to a maximum of 0.9 cm in diameter. There is no ascites or pleural effusion. The visualized inferior vena cava, hepatic veins and abdominal aorta are within normal limits. IMPRESSION : No ultrasonographic evidence of cirrhosis. Status post cholecystectomy. Signed by: Thanh Gomez MD on 04/07/2019 2:59 PM
[2019-04-07] MEDS: FAMOTIDINE 20 MG TAB PO SCH (16:24)
--- NOTE | 2019-04-07 17:31 | History and Physical ---
HISTORY OF PRESENT ILLNESS: She is a 73-year-old female patient of mine, presented to the emergency room with complaint of leg weakness and shortness of breath on walking. The patient denies having any fever, or cough or wheezing. The patient is also complaining of throat area pain but no sore throat. No cough. REVIEW OF SYSTEMS: Leg pain, weakness and shortness of breath on mild to moderate exertion. PAST MEDICAL HISTORY: The patient has hypertension, diabetes mellitus and heart disease. PAST SURGICAL HISTORY: Cystectomy. ALLERGIES: NO KNOWN DRUG ALLERGIES. SOCIAL HISTORY: Denies smoking. Denies using alcohol. FAMILY HISTORY: Diabetes mellitus, hypertension. REVIEW OF SYSTEMS: Detailed multisystem review of system examination done and as per history of present illness. PHYSICAL EXAMINATION: GENERAL: She is an elderly female patient. The patient is malnourished. VITAL SIGNS: Temperature 98, pulse rate 75, blood pressure 185/41, respiration rate 16. HEENT: Normocephalic, atraumatic. NECK: No JVD. No lymphadenopathy. LUNGS: Bilateral equal air entry. No rales, no rhonchi. HEART: S1, S2. Regular. Systolic murmur present. ABDOMEN: Soft. Bowel sounds present. NEUROLOGIC: No focal neurological deficit. EXTREMITIES: No edema. LABORATORY DATA: The patient has a low calcium, low potassium, hyponatremia, anemia, and severe hypoalbuminemia. ADMITTING IMPRESSION DIAGNOSES: Shortness of breath on exertion, hypokalemia, hypocalcemia, and severe protein calorie malnutrition, acute on chronic, present on admission, and diabetes mellitus, hypertension. PLAN: The patient will be admitted with above diagnosis. We will treat the patient with the antibiotic. We will obtain from ER, Pulmonary, and Renal consult was done. We will obtain echocardiogram. The patient will get potassium supplement. MD OBED Welsh/ARLINL /[id number]
--- NOTE | 2019-04-07 17:59 | NUR ---
Agreed now to do CT. Leaving floor to go to ct now
[2019-04-07 18:02] LABS: BLOOD UREA NITROGEN 25 mg/dL (7-26); BUN/CREATININE RATIO 36 (6-25); CALCIUM 7.1 mg/dL (8.4-10.2); CARBON DIOXIDE 22 mmol/L (22-29); CHLORIDE 104 mmol/L (98-107); CREATININE, SERUM 0.69 mg/dL (0.57-1.11); EST GLOMERULAR FILTRATION RATE > 60 ML/MIN (60-); GLUCOSE 179 mg/dL (74-118); SODIUM 131 mmol/L (136-145)
[2019-04-07 18:15] LABS: CREATINE KINASE 358 IU/L (29-168)
--- NOTE | 2019-04-07 18:58 | Diagnostic Imaging Report ---
EXAM: CT Chest WITH contrast 04/07/2019 10:26 AM INDICATION: Shortness of breath COMPARISON: None TECHNIQUE: Chest was scanned utilizing a multidetector helical scanner from the lung apex through the level of the adrenal glands without administration of IV contrast. Coronal and sagittal reformations were obtained. Routine protocol was performed. IV CONTRAST: 100 mL of Omnipaque 300 COMPLICATIONS: None RADIATION DOSE: Total DLP: 463.31 mGy*cm Estimated effective dose: (DLP x 0.014 x size factor) mSv CTDIvol has been reviewed. It is below the limits set by the Radiation Protocol Committee (RPC). FINDINGS: LINES/ TUBES: None. LUNGS AND AIRWAYS: There is no pulmonary embolus. There is a 4 mm pulmonary nodule in the left upper lobe (series 3, image 42). Bronchiectatic changes are seen most pronounced in the right lower lobe. Area of atelectatic change and scarring are seen in both lung bases. PLEURA: The pleural spaces are clear. HEART AND MEDIASTINUM: 1.8 cm low-density lesion in the right thyroid lobe. No mediastinal, hilar or axillary lymphadenopathy. The heart is normal in size. There is no pericardial effusion. There are significant atherosclerotic calcifications in the aorta and coronary arteries. UPPER ABDOMEN: There is a 0.6 cm low-density lesion in the incompletely included the liver (series 2, image 94) too small to adequately characterize, similar to prior CT abdomen. BONES: There are extensive degenerative changes in the thoracic spine. SOFT TISSUES: Unremarkable. IMPRESSION: No pulmonary embolism. Bronchiectasis most pronounced in right lower lobe. Bibasilar atelectasis and scarring. 4 mm pulmonary nodule in the left upper lobe. Recommend follow-up CT chest based on Fleischner criteria. 1.8 cm low-density lesion in the right thyroid lobe. Recommend further evaluation with thyroid ultrasound. Signed by: Serjio Madsen MD on 04/07/2019 6:55 PM
--- NOTE | 2019-04-07 20:00 | Consultation ---
DATE OF CONSULTATION: REASON FOR CONSULTATION: Electrolyte imbalance. HISTORY OF PRESENT ILLNESS: The patient is a 73-year-old female with past medical history of hypertension, diabetes, hyperlipidemia, was admitted with generalized weakness. The patient was found to have hyponatremia, sodium of 123. The patient denies having any nausea, vomiting, or diarrhea. The patient was on hydrochlorothiazide, which was put on hold. Her potassium was also low at 3.3. The patient was started on normal saline. This morning, sodium is at 131. Per patient, she feels better today. Her hydrochlorothiazide was started on the 2nd week of January. PAST MEDICAL HISTORY: As above. PAST SURGICAL HISTORY: Cholecystectomy. ALLERGIES: NO KNOWN DRUG ALLERGIES. MEDICATIONS: At home, the patient was on alendronate, metoprolol, valsartan, hydrochlorothiazide. REVIEW OF SYSTEMS: GENERAL: No fatigue, no fever, no chills. HEENT: No headache. No blurry vision. NECK: No dysphagia. CARDIOVASCULAR: No chest pain or PND. No orthopnea. RESPIRATORY: No shortness of breath. No dyspnea on exertion. No cough or hemoptysis. GI: No nausea, vomiting, diarrhea, constipation, hematemesis, or melena. MUSCULOSKELETAL: No ankle swelling. NEUROLOGIC: No numbness, weakness, or tingling. SKIN: No new rash. PHYSICAL EXAMINATION: VITAL SIGNS: Blood pressure 104/51, pulse of 74, respirations 16, temperature 97.9, 98% on room air. GENERAL: The patient is awake and alert, oriented x3. Eating lunch. She denies having any complaint. HEENT: PERRLA. Extraocular muscles intact. NECK: No elevated JVD. HEART: S1, S2. LUNGS: Clear to auscultation bilaterally. ABDOMEN: Soft, nontender, and nondistended. Bowel sounds positive. EXTREMITIES: No edema. NEUROLOGIC: No focal deficits. SKIN: No new rash. LABORATORY DATA: Sodium 131, potassium 3.0, chloride 140, CO2 of 22, BUN 32, creatinine 0.76, glucose 146, calcium 6.8. LFTs within normal range. Albumin 2.0. Hemoglobin A1c 6.7. White count 8.3, hemoglobin 10.2, platelet count 79. Chest x-ray, no acute cardiopulmonary abnormalities. ASSESSMENT AND PLAN: 1. Hyponatremia, likely secondary to hydrochlorothiazide. Hydrochlorothiazide was put on hold. The patient was on NS. Currently sodium is better. Would discontinue NS. Repeat the lab in the morning. No further workup at this point. 2. Hypokalemia, likely secondary to diuretics. Replace oral. We will check a magnesium level in the morning. 3. History of hypertension. Blood pressure is currently on the lower side. Restart blood pressure medications slowly. 4. Diabetes type 2, per primary team. Discussed with sister at bedside. I want to thank Dr. Langford for the consult. Bertha Buchanan MD [facility]/MOD[facility] /[id number]
[2019-04-07] MEDS ORDERED: IOPAMIDOL 370 MG/ML 200 ML INFUS..BTL INJ ONE (22:11)
[2019-04-07] MEDS ORDERED: SODIUM CHLORIDE 0.9% 50ML 50 ML ONE (22:11)
[2019-04-08] VITALS (8 sets, daily range): BP systolic 89–114; BP diastolic 42–56
[2019-04-08] MEDS: CEFTRIAXONE SOD 1 GM/NS 50 ML 50 ML IV SCH (04:45)
[2019-04-08 05:15] LABS: BASOPHILS % 0.2 % (0.0-1.0); EOSINOPHILS # (AUTO) 0.1 (0.0-0.4); EOSINOPHILS % 1.2 % (0.0-6.0); HEMATOCRIT 30.3 % (34.2-44.1); HEMOGLOBIN 9.9 g/dL (12.0-16.0); LYMPHOCYTES # (AUTO) 2.5 (1.0-3.2); LYMPHOCYTES % 26.9 % (18.0-39.1); MEAN CORPUSCULAR HEMOGLOBIN 30.1 pg (28-32); MEAN CORPUSCULAR HGB CONC 32.7 g/dL (31-35); MEAN CORPUSCULAR VOLUME 92.1 fL (81-99); MONOCYTES % 10.8 % (4.4-11.3); NEUTROPHILS # (AUTO) 5.7 (2.1-6.9); NEUTROPHILS % 60.4 % (38.7-80.0); PLATELET COUNT 110 x10e3/uL (140-360); RED BLOOD COUNT 3.29 x10e6/uL (3.6-5.1); RED CELL DISTRIBUTION WIDTH 16.1 % (11.7-14.4)
[2019-04-08 05:30] LABS: INR 1.05; PROTHROMBIN TIME 14.3 seconds (11.9-14.5)
[2019-04-08 05:36] LABS: ALANINE AMINOTRANSFERASE 26 IU/L (0-55); ALKALINE PHOSPHATASE 38 IU/L (40-150); BLOOD UREA NITROGEN 20 mg/dL (7-26); BUN/CREATININE RATIO 31 (6-25); CALCIUM 7.1 mg/dL (8.4-10.2); CARBON DIOXIDE 22 mmol/L (22-29); CHLORIDE 106 mmol/L (98-107); CREATININE, SERUM 0.65 mg/dL (0.57-1.11); EST GLOMERULAR FILTRATION RATE > 60 ML/MIN (60-); GLUCOSE 119 mg/dL (74-118); SODIUM 132 mmol/L (136-145)
[2019-04-08] MEDS: INSULIN LISPRO 100 UNIT/1 ML 3ML VIAL SQ SCH ×2 (07:17→12:33)
[2019-04-08] MEDS ORDERED: GLIPIZIDE 5 MG TAB ER PO SCH (07:30)
[2019-04-08] MEDS: FAMOTIDINE 20 MG TAB PO SCH (07:43)
[2019-04-08] MEDS ORDERED: METOPROLOL SUCCINATE 25 MG TAB XL PO SCH (09:00)
[2019-04-08] MEDS ORDERED: DIOVAN80 MG PO (11:28)
--- NOTE | 2019-04-08 11:39 | NUR ---
Nutrition Screen Note RD Recommendation for Physician: - Continue current diet Plan of Care: RD following, monitoring for tolerance and adequacy - Diet education provided 04/07 Nutrition reason for involvement: Nutrition Risk Trigger Primary Diagnose(s): dyspnea, renal insufficiency, hypocalcemia PMH: HTN, DM, heart disease Ht: 56 in Wt: 109 lb BMI: 24.4 kg/m2 IBW: [address] Assessment: (04/07) 73 YOF admitted for dyspnea, renal insufficiency, and hypocalcemia. Pt seen today per MD consult for "diabetes and malnutrition". 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 Pt reports 5# wt loss over the past 2-3 months, noted 4% wt loss- insignificant change. Pt denies any N/V/C/D. Chart reviewed. Labs and meds reviewed, A1C within recommended range of 6.7 on admit. Diet education provided, pt and family with no questions at time of visit. Will monitor and continue to follow. Current Diet: 1800 ADA Malnutrition Evaluation (04/08/19) The patient does not meet criteria for a specified degree of malnutrition at this time. Will re-evaluate at follow-up as appropriate. Energy intake: <75% of estimated energy requirements for >1 month Weight loss: Does not meet criteria- pt with minor wt changes, 4% loss in 2-3 months Fat loss: none, Muscle loss: none, shoulder round, clavicle not visible Supporting Evidence: Fluid accumulation: none Functional Status: not assessed Diet Education Needs Assessment: Diet education indicated, pt receptive. 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
[2019-04-08] MEDS ORDERED: GABAPENTIN300 MG PO (13:12)
[2019-04-08] MEDS ORDERED: OMEPRAZOLE40 MG PO (13:13)
[2019-04-08] MEDS ORDERED: ATORVASTATIN CA80 MG PO (13:13)
--- NOTE | 2019-04-08 14:50 | NUR ---
PATIENT DISCHARGED. SPOKE WITH DR Archie VARELA REGARDING NEW PRESCRIPTIONS AND LOW BP. PATIENT TO FOLLOW UP WITH DR VARELA IN 2 DAYS AND TAKE ALL HER MEDICATION BOTTLES.
--- NOTE | 2019-04-09 04:30 | Discharge Summary ---
HOSPITAL COURSE: This is a 73-year-old female patient, presented to the emergency room with complaint of shortness of breath and leg pain and weakness. ADMITTING IMPRESSION: COPD, shortness of breath, COPD exacerbation, hypokalemia, hypocalcemia, and severe protein calorie malnutrition and hyponatremia. HOSPITAL COURSE SUMMARY: The patient was admitted with above diagnosis. The patient was given IV fluids and IV antibiotic Rocephin. The patient hydrochlorothiazide was discontinued. The patient has an echocardiogram was done, which showed an EF of 50% to 55%, and trace MR and TR. The patient has a CT scan of the chest was done, which showed bronchiectasis and 4 mm pulmonary nodule in the left upper lobe and 1.8 cm lesion in the right thyroid. The patient has a Nephrology and Pulmonary consult done. The patient has an ultrasound which showed, status post cholecystectomy and no other significant lesion and the patient sodium had got better. It is now 132. Potassium is 4 and hemoglobin is 9.9. So, the patient will be discharged home and the patient will have a dietary consultation for severe protein calorie malnutrition. The patient valsartan with hydrochlorothiazide will be discontinued and we will give patient valsartan 80 mg. The patient will need advance outpatient further checkup for the reason for the malnutrition. The patient need to follow up with Pulmonary, Dr. Sanchez for the lung nodule. MD OBED Welsh/MODL /[id number]
== END 2019-04-08 14:50 | disposition home or self-care (01) ==
LOC: ER 15:45 → INTOOBSV 17:11 → ERHOLD 17:11 → IMCU 19:32
PROVIDERS: ADMIT Internal Medicine; ATTEND Internal Medicine
DX: E22.2 Syndrome of inappropriate secretion of antidiuretic hormone (principal); I10 Essential (primary) hypertension; Z90.49 Acquired absence of other specified parts of digestive tract; Z83.3 Family history of diabetes mellitus; Z82.49 Family history of ischemic heart disease and other diseases of the circulatory system; E87.6 Hypokalemia; E83.51 Hypocalcemia; E43 Unspecified severe protein-calorie malnutrition; N17.9 Acute kidney failure, unspecified; E11.65 Type 2 diabetes mellitus with hyperglycemia; J44.1 Chronic obstructive pulmonary disease with (acute) exacerbation; I08.1 Rheumatic disorders of both mitral and tricuspid valves; R91.1 Solitary pulmonary nodule; Z79.84 Long term (current) use of oral hypoglycemic drugs
CPT/HCPCS: 36415 ×2; 71045; 71260; 76700; 80048; 80053 ×3; 80061; 81001; 82550 ×2; 82553 ×2; 82948 ×3; 83036; 83735 ×2; 83880; 84100; 84484 ×2; 85025 ×3; 85610; 93005; 93306; 96360; 96372; 97116; 97139; 97161; 99284; G0378 ×3; J0610; J0696 ×3; J7030 ×2; Q9967

== ENCOUNTER → 2019-07-22 | Outpatient (CLI) | payer MEDICARE, OTHER ==
[~2019-07-22] MED LIST changes: +ATORVASTATIN CA80 MG PO; +DIOVAN80 MG PO; +GABAPENTIN300 MG PO; +OMEPRAZOLE40 MG PO
--- NOTE | 2019-07-22 15:11 | Diagnostic Imaging Report ---
EXAMINATION: MRI of the brain without contrast. HISTORY: Severe right-sided headache for the last month, cerebral aneurysm. COMPARISON: None. TECHNIQUE: Sagittal T2; axial DWI, T2, FLAIR, T1-IR, T2 gradient echo; coronal FLAIR. FINDINGS: Parenchyma: 1. A few scattered white matter T2 hyperintense foci, most likely age related minimal chronic microvascular ischemic changes, otherwise no areas of abnormal enhancement within the brain parenchyma. 2. No mass, hemorrhage, acute or chronic infarcts. Skull: Right. No craniotomy defect. Vessels: Expected flow voids present in the major arteries and dural sinuses. Extra-axial spaces: No abnormal signal intensity or mass effect. 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 Brain volume: Within normal limits for age. Ventricles: No hydrocephalus or displacement. Foramen magnum: Unremarkable. Sella: Unremarkable. Paranasal / mastoid sinuses: No significant inflammatory disease. IMPRESSION: 1. No acute intracranial abnormalities. 2. Minimal chronic microvascular ischemic changes. 3. 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 Signed by: Dr. Yolanda Meeks M.D. on 07/22/2019 3:08 PM
== END ==
LOC: MRI 13:48
PROVIDERS: ATTEND Internal Medicine
DX: R51 Headache (principal); I67.1 Cerebral aneurysm, nonruptured
CPT/HCPCS: 70551

== ENCOUNTER → 2019-11-05 | Outpatient (RCR) | payer MEDICARE, OTHER | LOC: PT 10-23 10:11 | PROVIDERS: ATTEND Specialist | DX: M25.562 Pain in left knee (principal); M25.662 Stiffness of left knee, not elsewhere classified; M62.81 Muscle weakness (generalized) ==

== ENCOUNTER 2019-12-03 13:49 | Outpatient (RCR) | payer MEDICARE, OTHER ==
[2019-12-11] MEDS ORDERED: CARVEDILOL3.125 MG PO (16:18)
[2019-12-11] MEDS ORDERED: MELOXICAM7.5 MG PO (16:19)
[2019-12-11] MEDS ORDERED: AMLODIPINE BESYL5 MG PO (16:19)
[2019-12-11] MEDS ORDERED: ASPIRIN81 MG PO (16:20)
[2019-12-11] MEDS ORDERED: BENICAR20 MG PO (16:21)
== END 2019-12-06 ==
LOC: PT 13:49
PROVIDERS: ATTEND Specialist
DX: M25.562 Pain in left knee (principal); M25.662 Stiffness of left knee, not elsewhere classified; M62.81 Muscle weakness (generalized)

== ENCOUNTER → 2019-12-17 | Day surgery (SDC) | payer MEDICARE, OTHER ==
[2019-12-12 11:55] LABS: BASOPHILS # (AUTO) 0.1 (0.0-0.1); BASOPHILS % 0.7 % (0.0-1.0); EOSINOPHILS # (AUTO) 0.1 (0.0-0.4); EOSINOPHILS % 1.2 % (0.0-6.0); HEMATOCRIT 42.9 % (34.2-44.1); LYMPHOCYTES # (AUTO) 2.7 (1.0-3.2); LYMPHOCYTES % 31.9 % (18.0-39.1); MEAN CORPUSCULAR HEMOGLOBIN 30.5 pg (28-32); MEAN CORPUSCULAR HGB CONC 32.6 g/dL (31-35); MEAN CORPUSCULAR VOLUME 93.5 fL (81-99); MONOCYTES # (AUTO) 0.5 (0.2-0.8); NEUTROPHILS % 59.8 % (38.7-80.0); PLATELET COUNT 147 x10e3/uL (140-360); RED BLOOD COUNT 4.59 x10e6/uL (3.6-5.1)
[2019-12-12 12:18] LABS: ANION GAP 13.3 mmol/L (8-16); BLOOD UREA NITROGEN 11 mg/dL (7-26); BUN/CREATININE RATIO 15 (6-25); CALCIUM 9.1 mg/dL (8.4-10.2); CARBON DIOXIDE 26 mmol/L (22-29); CHLORIDE 106 mmol/L (98-107); CREATININE, SERUM 0.75 mg/dL (0.57-1.11); EST GLOMERULAR FILTRATION RATE > 60 ML/MIN (60-); GLUCOSE 120 mg/dL (74-118); POTASSIUM 4.3 mmol/L (3.5-5.1); SODIUM 141 mmol/L (136-145)
--- NOTE | 2019-12-12 13:17 | Diagnostic Imaging Report ---
EXAMINATION: CHEST 2 VIEWS INDICATION: Preop for knee surgery ^[id number] ^1300 ^PRE OP COMPARISON: April 01, 2019 FINDINGS: TUBES and LINES: None. LUNGS: Lungs are well inflated. Lungs are clear. There is no evidence of pneumonia or pulmonary edema. PLEURA: No pleural effusion or pneumothorax. HEART AND MEDIASTINUM: The cardiomediastinal silhouette is unremarkable. BONES AND SOFT TISSUES: No acute osseous lesion. Soft tissues are unremarkable. UPPER ABDOMEN: No free air under the diaphragm. IMPRESSION: No acute thoracic abnormality. Signed by: Dr. Richard Ramirez M.D. on 12/12/2019 1:13 PM
[~2019-12-17] MED LIST changes: +ACETAMINOPHEN 1000 MG/100 ML IV ONE; +AMLODIPINE BESYL5 MG PO; +ASPIRIN81 MG PO; +BENICAR20 MG PO; +BUPIVACAINE HCL 0.5% INJ 30 ML VIAL INJ ONE; +CARVEDILOL3.125 MG PO; +CEFAZOLIN SOD 1 GM/NS 50ML 100 ML IV ONE; +DEXAMETHASONE SOD PHOS INJ 4 MG/ML VIAL ONE; +FENTANYL CITRATE/PF 100MCG/2 ML INJ ONE; +HYDRALAZINE HCL 20 MG/ML VIAL ONE; +LIDOCAINE 1% W/EPINEPHRINE 20 ML VIAL ONE; +LIDOCAINE HCL 2% LOCAL INJ 5 ML SDV VIAL INJ ONE; +MELOXICAM7.5 MG PO; +MORPHINE SULFATE 2 MG/ML SYR 1ML ONE; +ONDANSETRON HCL INJ 2MG/ML 2ML 2 MG/ML VIAL ONE; +PROPOFOL IV EMULSION 10 MG/ML 20 ML VIAL ONE; +SEVOFLURANE INHAL SOLN 250 ML PEN BTL ONE
[2019-12-17 13:45] VITALS: BP 148/50
--- NOTE | 2019-12-18 20:23 | Operative Report ---
DATE OF PROCEDURE: 12/17/2019 SURGEON: Mango Hannah MD PREOPERATIVE DIAGNOSES: 1. Left knee lateral meniscus tear. 2. Left knee degenerative joint disease of the knee. 3. Symptomatic hardware, left knee. POSTOPERATIVE DIAGNOSES: 1. Left osteoarthritis of the knee. 2. Left knee symptomatic hardware. OPERATIONS AND PROCEDURES PERFORMED: The patient underwent left knee exam under anesthesia, left knee diagnostic arthroscopy, left knee chondroplasty of the patella, the trochlea, the medial femoral condyle, the medial tibial plateau, the lateral femoral condyle, and the lateral tibial plateau as well as removal of symptomatic hardware from the patella. 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 ANESTHESIA: General endotracheal intubation anesthesia. IV FLUIDS: Per the anesthesia record. BRIEF DISCUSSION OF THE PATIENT'S OPERATIVE PROCEDURE: Ms. Marquez was taken to the operating room and placed in supine position on the operating table. Following induction of general anesthesia as well as endotracheal intubation, the patient's left lower extremity was examined under anesthesia. She was found to have prominent hardware overlying the patella. There was no significant effusion of the knee joint. The patient had full passive range of motion of the knee joint. Her ligamentous examination was stable. The patient's lower extremity was prepped and draped in standard surgical fashion. Case was begun by providing the patient a diagnostic arthroscopy of left knee joint. A two-port technique was used to provide this patient arthroscopic evaluation of the knee. The scope was placed through the knee joint atraumatically. Examination of the patellofemoral joint demonstrated chondromalacia of the articulating surfaces. There were no loose bodies in the knee. The scope was advanced in the medial compartment. Examination of the medial compartment demonstrated chondromalacia of the articulating surfaces. There was no evidence of a torn medial meniscus. A chondroplasty of the medial femoral condyle and medial tibial plateau were performed at this time. Scope was then advanced into the intercondylar notch and the anterior cruciate ligament was identified and found to be intact. Scope was advanced to lateral compartment and chondromalacia of the articulating surface was removed. A chondroplasty of the lateral tibial plateau and lateral femoral condyle was performed at this time. Scope was then placed in suprapatellar pouch and chondroplasties of the patellar and trochlear were performed. The knee was then deflated with sterile normal saline. The portal sites were closed in a single layer fashion. Attention was then turned to the patient's symptomatic hardware. She had a well-healed incision overlying the anterior aspect of the knee joint consistent with a previous open reduction and internal fixation of the patella fracture. She marked and prominent hardware overlying her patella. The midportion of the incision was opened from the superior pole of the patella to the inferior pole of the patella. The incision was carried through skin only. Blunt dissection was used deep in the incision and full-thickness skin flaps were elevated medially and laterally exposing the patient's hardware. The patient's pins were removed from the patella and the [id number] wire was also removed at this time. The wound was copiously irrigated. The soft tissues were closed in a multilayer fashion. Sterile dressings were applied as well as the knee immobilizer. The patient was then awakened and taken to the postanesthesia care unit in stable condition. MD MARA Christiansen/JASON /[id number]
== END | disposition home or self-care (01) ==
LOC: OR 07:42
PROVIDERS: ATTEND Specialist
DX: M17.12 Unilateral primary osteoarthritis, left knee (principal); Z45.89 Encounter for adjustment and management of other implanted devices; M22.42 Chondromalacia patellae, left knee; S83.262A Peripheral tear of lateral meniscus, current injury, left knee, initial encounter; E11.9 Type 2 diabetes mellitus without complications; I10 Essential (primary) hypertension; I25.10 Atherosclerotic heart disease of native coronary artery without angina pectoris; I25.2 Old myocardial infarction; K21.9 Gastro-esophageal reflux disease without esophagitis; N39.0 Urinary tract infection, site not specified; Z01.810 Encounter for preprocedural cardiovascular examination; Z01.812 Encounter for preprocedural laboratory examination; Z01.818 Encounter for other preprocedural examination; Z20.828 Contact with and (suspected) exposure to other viral communicable diseases; Z79.82 Long term (current) use of aspirin; Z86.73 Personal history of transient ischemic attack (TIA), and cerebral infarction without residual deficits; Z87.891 Personal history of nicotine dependence
CPT/HCPCS: 20680; 29877; 36415 ×2; 71046; 76000; 80048; 82948; 85025; 93005; J0131; J0360; J0690; J1100; J2001; J2270; J2405; J2704; J3010; U0002

== ENCOUNTER → 2020-02-05 | Outpatient (RCR) | payer MEDICARE, OTHER ==
[~2020-02-05] MED LIST changes: -ACETAMINOPHEN 1000 MG/100 ML IV ONE; -BUPIVACAINE HCL 0.5% INJ 30 ML VIAL INJ ONE; -CEFAZOLIN SOD 1 GM/NS 50ML 100 ML IV ONE; -DEXAMETHASONE SOD PHOS INJ 4 MG/ML VIAL ONE; -FENTANYL CITRATE/PF 100MCG/2 ML INJ ONE; -HYDRALAZINE HCL 20 MG/ML VIAL ONE; -LIDOCAINE 1% W/EPINEPHRINE 20 ML VIAL ONE; -LIDOCAINE HCL 2% LOCAL INJ 5 ML SDV VIAL INJ ONE; -MORPHINE SULFATE 2 MG/ML SYR 1ML ONE; -ONDANSETRON HCL INJ 2MG/ML 2ML 2 MG/ML VIAL ONE; -PROPOFOL IV EMULSION 10 MG/ML 20 ML VIAL ONE; -SEVOFLURANE INHAL SOLN 250 ML PEN BTL ONE
== END ==
LOC: PT 01-09 14:56
PROVIDERS: ATTEND Specialist
DX: S82.002A Unspecified fracture of left patella, initial encounter for closed fracture (principal)

== ENCOUNTER 2020-02-20 13:54 | Outpatient (RCR) | payer MEDICARE, OTHER | END 2020-03-07 | LOC: PT 13:54 | PROVIDERS: ATTEND Specialist | DX: S82.002A Unspecified fracture of left patella, initial encounter for closed fracture (principal); M25.562 Pain in left knee; M62.81 Muscle weakness (generalized) | CPT/HCPCS: 97139 ==

== ENCOUNTER → 2020-03-17 | Outpatient (CLI) | payer MEDICARE | LOC: MAMMO 12:49 | PROVIDERS: ATTEND Internal Medicine | DX: Z12.31 Encounter for screening mammogram for malignant neoplasm of breast (principal) | CPT/HCPCS: 77067 ==

== ENCOUNTER → 2020-09-15 | Outpatient (CLI) | payer MEDICARE ==
[~2020-09-15] MED LIST changes: +DIATRIZOATE MEGL/DIATRIZOA SOD 30 ML BTL PO ONE; +IOPAMIDOL 370 MG/ML 200 ML INFUS..BTL INJ ONE; +SODIUM CHLORIDE 0.9% 50ML 50 ML ONE
== END ==
LOC: CT 13:46
PROVIDERS: ATTEND Internal Medicine
DX: K57.92 Diverticulitis of intestine, part unspecified, without perforation or abscess without bleeding (principal); K76.0 Fatty (change of) liver, not elsewhere classified; Z90.49 Acquired absence of other specified parts of digestive tract
CPT/HCPCS: 74177; Q9967

== ENCOUNTER → 2021-03-25 | Outpatient (CLI) | payer MEDICARE ==
[~2021-03-25] MED LIST changes: -DIATRIZOATE MEGL/DIATRIZOA SOD 30 ML BTL PO ONE; -IOPAMIDOL 370 MG/ML 200 ML INFUS..BTL INJ ONE; -SODIUM CHLORIDE 0.9% 50ML 50 ML ONE
== END ==
LOC: MRI 10:34
PROVIDERS: ATTEND Internal Medicine
DX: S06.0X0A Concussion without loss of consciousness, initial encounter (principal)
CPT/HCPCS: 70551

== ENCOUNTER → 2021-06-23 | Outpatient (CLI) | payer MEDICARE | LOC: MAMMO 10:31 | PROVIDERS: ATTEND Internal Medicine | DX: Z12.31 Encounter for screening mammogram for malignant neoplasm of breast (principal) | CPT/HCPCS: 77067 ==